=== PATIENT | male | born 1950 | race Hispanic/Latino ===

== ENCOUNTER → 2021-03-29 | Outpatient (CLI) | payer OTHER | END | disposition home or self-care (01) | LOC: RAH 12:26 | DX: Z01.818 Encounter for other preprocedural examination (principal); D12.0 Benign neoplasm of cecum; Z68.29 Body mass index [BMI] 29.0-29.9, adult | CPT/HCPCS: 71046 ==

== ENCOUNTER → 2024-06-23 | Outpatient (CLI) | payer OTHER ==
--- NOTE | 2024-06-23 16:33 | HMCIMG ---
FOOT COMP 3+VWS LT REASON: PAIN IN LEFT FOOT, PLANTAR FASCIAL FIBROMATOSIS TECHNIQUE: 3 views were obtained. FINDINGS: There is no evidence of fracture or dislocation. There is no joint effusion. The soft tissues appear unremarkable. There is no evidence of a radiopaque foreign body. IMPRESSION: No acute findings.
== END | disposition home or self-care (01) ==
LOC: RAH 15:48
PROVIDERS: ATTEND Nurse Practitioner Family
DX: M79.672 Pain in left foot (principal); M72.2 Plantar fascial fibromatosis
CPT/HCPCS: 73630